=== PATIENT | female | born 1985 | race Caucasian/White ===

== ENCOUNTER 2016-10-23 01:57 | Emergency (ER) | payer BC ==
[~2016-10-23] VITALS: Ht 160 cm; Wt 54.4 kg
[2016-10-23 02:19] VITALS: BP 154/100
[2016-10-23 02:30] LABS: BASOPHILS % (AUTO) 1.4 % (0.0-2.0); EOSINOPHILS % (AUTO) 2.7 % (0.0-3.0); LYMPHOCYTES % (AUTO) 47.9 % (20.0-45.0); MEAN CORPUSCULAR HEMOGLOBIN 30.5 PG (27.0-31.0); MEAN CORPUSCULAR HGB CONC 32.9 G/DL (32.0-36.0); MEAN CORPUSCULAR VOLUME 93 FL (80-99); MEAN PLATELET VOLUME 8.5 FL (6.5-10.1); MONOCYTES % (AUTO) 8.2 % (1.0-10.0); NEUTROPHILS % (AUTO) 39.8 % (45.0-75.0); PLATELET COUNT 238 K/UL (150-450); RED BLOOD COUNT 4.55 M/UL (4.20-5.40); RED CELL DISTRIBUTION WIDTH 11.2 % (11.6-14.8); WHITE BLOOD COUNT 7.5 K/UL (4.8-10.8)
[2016-10-23 02:33] LABS: APPEARANCE,URINE CLEAR; KETONES,URINE NEGATIVE (NEGATIVE); LEUKOCYTE ESTERASE ,URINE NEGATIVE (NEGATIVE); NITRITE,URINE NEGATIVE (NEGATIVE); PH,URINE 8 (4.5-8.0); PROTEIN,URINE NEGATIVE (NEGATIVE); UROBILINOGEN,URINE NORMAL MG/DL (0.0-1.0)
[2016-10-23 02:46] LABS: ALCOHOL < 10 mg/dL; ANION GAP 19 (5-15); CALCIUM 9.5 mg/dL (8.6-10.2); CARBON DIOXIDE 23 mEQ/L (20-30); CHLORIDE 99 mEQ/L (98-107); CREATININE 0.7 mg/dL (0.5-0.9); GLOMERULAR FILTRATION RATE > 60 mL/min (>60); HEMOLYSIS 4; POTASSIUM 4.1 mEQ/L (3.4-4.9); SODIUM 141 mEQ/L (135-145)
[2016-10-23 03:30] VITALS: BP 105/66
[2016-10-23] MEDS ORDERED: ATIVAN1 MG ORAL (04:02)
[2016-10-23] MEDS ORDERED: LORazepam 1mg tab ORAL ONE (04:15)
[2016-10-23 04:26] VITALS: BP 105/66
--- NOTE | 2016-10-26 07:51 | Emergency Room Report ---
History of Present Illness General Chief Complaint: Seizure Source: Patient, EMS Present Illness HPI Patient is a 31-year-old female who presented after having a witnessed seizure. Patient had brief seizure with subsequent postictal interval several minutes. The patient was not noted have any change in skin color. The patient had become more awake alert during transport by EMS. She had a generalized seizure. She had no prior history of seizure disorder. She's not currently taking medications. She denied recent stimulant use. She stated that she drinks alcohol several days a week around 4 glasses. Allergies: Coded Allergies: No Known Allergies (Unverified , 10/23/16) Patient History Past Medical History: see triage record Last Menstrual Period: 7 days ago Now: No Reviewed Nursing Documentation: PMH: Agreed, PSxH: Agreed Nursing Documentation-PMH Past Medical History: No Stated History Review of Systems All Other Systems: negative except mentioned in HPI Physical Exam Vital Signs Date Time Temp Pulse Resp B/P Pulse Ox O2 Delivery O2 Flow Rate FiO2 10/23/16 01:59 98.4 112 14 154/100 98 Room Air Sp02 EP Interpretation: reviewed, normal General Appearance: normal inspection, well appearing, no apparent distress, alert, GCS 15, non-toxic Head: atraumatic ENT: normal ENT inspection, hearing grossly normal, normal voice Neck: normal inspection, full range of motion, supple, no bony tend Respiratory: normal inspection, lungs clear, normal breath sounds, no respiratory distress, no retraction, no wheezing Cardiovascular #1: regular rate, rhythm, no edema Gastrointestinal: normal inspection, normal bowel sounds, non tender, soft, no guarding, no hernia Genitourinary: no CVA tenderness Musculoskeletal: normal inspection, back normal, normal range of motion Neurologic: normal inspection, alert, oriented x3, responsive, accounts payable or receivable clerk III-XII nml as tested, motor strength/tone normal, speech normal, other - mild tremulousness , oriented Psychiatric: normal inspection, judgement/insight normal, mood/affect normal Skin: normal inspection, normal color, no rash Medical Decision Making Diagnostic Impression: Primary Impression: Epileptic seizure, generalized ER Course Patient presented for seizure. Differential diagnosis included cysticercosis , electrolyte abnormality, eclampsia , mass lesion, or cranial hemorrhage. Because of complexity of patient's case laboratory testing and imaging studies were ordered. Laboratory testing was unremarkable. Patient was not . Patient noted have a nonfocal neural exam. The patient is advised to have outpatient EEG as well as MRI. She started on Ativan as this appears to be some component of alcohol withdrawal. The patient is advised to follow up with primary care doctor in 1-2 days. Patient is advised to return if any worsening condition or if any changes in status that are concerning. Labs Test 10/23/16 02:00 10/23/16 03:50 White Blood Count 7.5 K/UL (4.8-10.8) Red Blood Count 4.55 M/UL (4.20-5.40) Hemoglobin 13.9 G/DL (12.0-16.0) Hematocrit 42.2 % (37.0-47.0) Mean Corpuscular Volume 93 FL (80-99) Mean Corpuscular Hemoglobin 30.5 PG (27.0-31.0) Mean Corpuscular Hemoglobin Concent 32.9 G/DL (32.0-36.0) Red Cell Distribution Width 11.2 % (11.6-14.8) Platelet Count 238 K/UL (150-450) Mean Platelet Volume 8.5 FL (6.5-10.1) Neutrophils (%) (Auto) 39.8 % (45.0-75.0) Lymphocytes (%) (Auto) 47.9 % (20.0-45.0) Monocytes (%) (Auto) 8.2 % (1.0-10.0) Eosinophils (%) (Auto) 2.7 % (0.0-3.0) Basophils (%) (Auto) 1.4 % (0.0-2.0) Urine Color Yellow Urine Appearance Clear Urine pH 8 (4.5-8.0) Urine Specific [place] 1.015 (1.005-1.035) Urine Protein Negative (NEGATIVE) Urine Glucose (UA) Negative (NEGATIVE) Urine Ketones Negative (NEGATIVE) Urine Occult Blood Negative (NEGATIVE) Urine Nitrite Negative (NEGATIVE) Urine Bilirubin Negative (NEGATIVE) Urine Urobilinogen Normal MG/DL (0.0-1.0) Urine Leukocyte Esterase Negative (NEGATIVE) Urine HCG, Qualitative Negative Sodium Level 141 mEQ/L (135-145) Potassium Level 4.1 mEQ/L (3.4-4.9) Chloride Level 99 mEQ/L (98-107) Carbon Dioxide Level 23 mEQ/L (20-30) Anion Gap 19 (5-15) Blood Urea Nitrogen 9 mg/dL (7-23) Creatinine 0.7 mg/dL (0.5-0.9) Estimat Glomerular Filtration Rate > 60 mL/min (>60) Glucose Level 115 mg/dL (74-106) Calcium Level 9.5 mg/dL (8.6-10.2) Serum Alcohol < 10 mg/dL Urine Opiates Screen Negative (NEGATIVE) Urine Barbiturates Screen Negative (NEGATIVE) Phencyclidine (PCP) Screen Negative (NEGATIVE) Urine Amphetamines Screen Negative (NEGATIVE) Urine Benzodiazepines Screen Negative (NEGATIVE) Urine Cocaine Screen Negative (NEGATIVE) Urine Marijuana (THC) Screen Negative (NEGATIVE) Last Vital Signs Date Time Temp Pulse Resp B/P Pulse Ox O2 Delivery O2 Flow Rate FiO2 10/23/16 04:26 98.4 86 14 105/66 100 Room Air Status: improved Disposition: HOME, SELF-CARE Condition: Stable Scripts Lorazepam* (ATIVAN*) 1 Mg Tablet 1 MG ORAL BEDTIME for For Anxiety, #10 TAB Prov: Fabian Arellano 10/23/16 Referrals: NOT CHOSEN [facility]/MD,REFERRING (PCP) Patient Instructions: Seizure, Adult Additional Instructions: follow up for MRI and EEG with primary doctor. Do not drive a car or operate machinery Fabian Arellano Oct 26, 2016 07:51
== END 2016-10-23 05:00 | disposition home or self-care (01) ==
LOC: EDBD 01:57 → EMR 04:31
DX: G40.409 Other generalized epilepsy and epileptic syndromes, not intractable, without status epilepticus (principal)
CPT/HCPCS: 36415; 80048; 80300; 81003; 81025; 82962; 85025; 96374; 99284; G0480; 80329